=== PATIENT | female | born 1935 | race Caucasian/White ===

== ENCOUNTER → 2018-12-18 | Outpatient (CLI) | payer MEDICARE ==
[2018-09-21 11:00] VITALS: BP 156/66
[~2018-12-18] MED LIST: AMLO1TAB12 PO; ASPI-482 PO; ASPI325T8 PO; ATOR40TA59 PO; CALC-98 PO; CHOL10003 PO; CHOL500016 PO; FURO-68 PO; GLIP10TA13 PO; GLIP5TAB10 PO; LATA2.5D3 OU; LEVO50TA5 PO; LINA5TAB PO; METO-269 PO; REGADENOSON 0.4 MG/5 ML DISP.SYRIN. IV ONE; SACU1TAB PO; TIMOPTIC 0.25% OU; TRAV5DRO OP; VIT1CAPS12 PO; [UNRECOGNIZED DRUG - OTHER]
--- NOTE | 2018-12-18 12:03 | RAD ---
MR#: [id number] Date of Study: 12/18/2018 Ordering Physician: LULA MIRELES, Referring Physician: AMBER HURTADO Tech: ALBER Soto APPROVED REPORT Test Type: Pharmacological Stress Nurse/Tech: LEE MÁRQUEZ Test Indications: CAD, LOW EF Cardiac History: See Electronic Medical Record BRADYCARDIA, TRIGIMINEY Medications: See Electronic Medical Record Medical History: See Electronic Medical Record Resting ECG: SR W/PVC'S Resting Heart Rate: 65 bpm Resting Blood Pressure: 162/63mmHg Pretest Chest Pain: No chest pain Nurse/Tech Notes S1,S2, LUNGS CTA, DENIES CHEST PAIN OR SOA. PT IS WEARING A LIFE VEST. Consent: The procedure was explained to the patient in lay terms. Informed consent was witnessed. Josh eout was entered into [email or web address]. History and Stress Test performed by BULL Tang, ARRT (R) (N) Pharm. Details Pharmacologic stress testing was performed using 0.4mg per 5ml of regadenoson given intravenously ove r 7-10 seconds. Stress Symptoms PT DENIED CP OR SOA, C/O "A FUNNY FEELING", BUT RESOLVED. POST EXERCISE Reason for Termination: Infusion complete Max HR: 112 bpm Max Blood Pressure: 136/58mmHg Blood Pressure response to exercise: Normal blood pressure response during stress. Heart Rate response to exercise: NORMAL RESPONSE TO STRESS Chest Pain: No. Arrhythmia: . SR W/PVC'S,TRIGIMINEY NOTED ST Change: No. INTERPRETATION Stress EKG Conclusion: The resting EKG shows a sinus rhythm, nonspecific ST wave changes and lateral mild T wave inversion. The stress EKG shows no significant changes from baseline. No EKG evidence of stressed induced ischemia. Imaging Protocol IMAGE PROTOCOL: Rest Tc-99m/stress Tc-99m 1 day Rest: Stress: Viability: Radiopharm.Tc99m AdzahpkhvHs71f Sestamibi Jndz47tTn 33mCi Duration 15min. 13min. Img Date 12/18/2018 12/18/2018 Inj-Img Vfrr13nxk. 60min. Rest Admin Site:IV - Left WristAdministrator:BULL Tang, ARRT (R)(N) Stress Admin Site: IV - Left WristAdministrator: BULL Tang, ARRT (R)(N) STRESS DATA End Diast. Vol.132.0mlLVEDV index BSA77.0ml End Syst. Vol.77.0mlLVESV index BSA45.0ml Myocardial Yutq450.0gEject. Kcuuwupr17.0% Stress Scores Regional WT3.00Summed WT29.00 Regional WM0.00Summed WM30.00 LV Perfusion The stress scans show a small inferior wall defect. The rest scans show a slightly larger inferior wall defect. Nuclear imaging shows no reversible ischemia. Nuclear imaging shows a small fixed inferior defect most consistent with an previous infarct. Wall Motion Left ventricular systolic function is mildly decreased with inferior septal hypokinesis and ejection fraction of 42%. LV Perf. Quant 17 Seg. SSS2.00 17 Seg. SRS8.00 17 Seg. SDS0.00 Stress Defect Extent (% LAD)0.00Rest Defect Extent (% LAD)0.00Rev. Defect Extent (% LAD)0.00 Stress Defect Extent (% LCX) 0.00Rest Defect Extent (% LCX)10.00Rev. Defect Extent (% LCX)0.00 Stress Defect Extent (% RCA)11.10Rest Defect Extent (% RCA)32.20Rev. Defect Extent (% RCA)0.00 Stress Defect Extent (% LANDON)5.40Rest Defect Extent (% LANDON)13.00Rev. Defect Extent (% LANDON)0.00 IMPRESSION Comparison of Rest to Stress Regional Wall Thickening: No Change, Normal, Mildly Decreased Wall Thic kening, Moderately Decreased Wall Thickening, Severely Decreased Wall Thickening, Hyperdynamic Wall T hickening Conclusion 1. No EKG evidence of stressed induced ischemia. 2. Nuclear imaging shows no reversible ischemia. 3. Nuclear imaging shows an inferior infarct. 4. Left ventricular systolic function is mildly decreased with inferior septal hypokinesis and an eje ction fraction of 42%. 5. Moderately low risk Lexiscan nuclear stress test. Signed by : Reji Berumen MD Electronically Approved : 12/18/2018 12:03:23
--- NOTE | 2018-12-18 13:48 | CARD ---
MR#: [id number] Date of Study: 12/18/2018 Ordering Physician: LULA MIRELES, Referring Physician: Sommer HURTADO: Michelle Crenshaw LORRI APPROVED REPORT EXAM: Two-dimensional and M-mode echocardiogram with Doppler and color Doppler. Other Information Quality : AverageHR: 80bpm Rhythm : NSR INDICATION CAD 2D DIMENSIONS RVDd2.4 (2.9-3.5cm)Left Atrium(2D)3.8 (1.6-4.0cm) IVSd1.2 (0.7-1.1cm)Aortic Root(2D)2.2 (2.0-3.7cm) LVDd5.1 (3.9-5.9cm)LVOT Diameter2.1 (1.8-2.4cm) PWd1.0 (0.7-1.1cm)LVDs4.1 (2.5-4.0cm) FS (%) 19.9 %SV49.9 ml LVEF(%)25.0 (>50%) Aortic Valve AoV Peak Salas.105.6cm/sAoV VTI23.9cm AO Peak GR.4.5mmHgLVOT Peak Salas.73.7cm/s AO Mean GR.3mmHgAVA (VMAX)2.48cm2 PARVEEN (VTI)2.50cm2 Mitral Valve MV E Peak Gr.11mmHgMV E Mean Gr.3mmHg Pulmonary Valve PV Peak Rakxqalr49.9cm/s Pulmonary Vein S1 Azoudvci70.4cm/sD2 Bxsjbeqd63.0cm/s LEFT VENTRICLE The left ventricle is normal size. Proximal septal thickening is noted. The systolic function is gracie rely impaired. The Ejection Fraction is 20-25%. There is global hypokinesis of the left ventricle. Tr ansmitral Doppler flow pattern is Grade I-abnormal relaxation pattern. RIGHT VENTRICLE The right ventricle is normal size. There is normal right ventricular wall thickness. The right ventr icular systolic function is normal. ATRIA The left atrium is mildly dilated. The right atrium size is normal. The interatrial septum is intact with no evidence for an atrial septal defect or patent foramen ovale as noted on 2-D or Doppler imagi ng. AORTIC VALVE The aortic valve is mildly thickened. The aortic valve is trileaflet. Doppler and Color Flow revealed trace to mild aortic regurgitation. There is no significant aortic valvular stenosis. There is no ao rtic valvular vegetation. MITRAL VALVE Mitral annular calcification is mild. There is no evidence of mitral valve prolapse. There is no mitr al valve stenosis. Doppler and Color-flow revealed mild mitral regurgitation. TRICUSPID VALVE The tricuspid valve is normal in structure and function. Doppler and Color Flow revealed trace tricus pid regurgitation. There is no tricuspid valve prolapse or vegetation. There is no tricuspid valve st enosis. PULMONIC VALVE Doppler and Color Flow revealed mild pulmonic valvular regurgitation. There is no pulmonic valvular s tenosis. GREAT VESSELS The aortic root is normal in size. The ascending aorta is normal in size. The IVC is normal in size a nd collapses >50% with inspiration. PERICARDIAL EFFUSION There is no evidence of significant pericardial effusion. Critical Notification Critical Value: No <Conclusion> The systolic function is severely impaired. The Ejection Fraction is 20-25%. There is global hypokinesis of the left ventricle. Signed by : Dago Jordan, Electronically Approved : 12/18/2018 13:47:51
== END | disposition home or self-care (01) ==
LOC: NM 08:37
PROVIDERS: ATTEND Internal Medicine Cardiovascular Disease
DX: I08.8 Other rheumatic multiple valve diseases (principal); I25.10 Atherosclerotic heart disease of native coronary artery without angina pectoris
CPT/HCPCS: 78452; 93017; 93306; A9500; J2785

== ENCOUNTER 2019-03-01 10:18 | Observation (INO) | payer MEDICARE ==
[~2019-03-01] VITALS: Ht 162.6 cm; Wt 58.5 kg
[2019-03-01] VITALS (11 sets, daily range): BP systolic 113–151; BP diastolic 43–67
[~2019-03-01 10:18] MED LIST changes: +HYDROmorphone 2 MG/ML VIAL IV PRN; +IV RINGERS,LACTATED 1000ML 1,000 ML IV SCH; +LIDOCAINE 1% PF 2 ML VIAL. ID PRN; +MORPHINE SULFATE 2 MG/ML VIAL. IV PRN; +ONDANSETRON PF 4 MG/2 ML VIAL. IV PRN; +PROCHLORPERAZINE 10 MG/2 ML VIAL. IV PRN; -REGADENOSON 0.4 MG/5 ML DISP.SYRIN. IV ONE; +fentaNYL PF VIAL 100 MCG/2 ML VIAL IV PRN
[2019-03-01] MEDS ORDERED: BACITRACIN 50,000 UNIT in IV NORMAL SALINE 250ML 250 ML IRR ONE (10:45)
[2019-03-01] MEDS ORDERED: MULT-505 PO (10:56)
[2019-03-01] MEDS ORDERED: BYSTOLIC5 MG PO (10:56)
--- NOTE | 2019-03-01 11:08 | EKG ---
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
[2019-03-01 11:38] LABS: HEMATOCRIT 34.5 % (36.0-47.0); HEMOGLOBIN 11.2 g/dL (12.0-15.5); RED BLOOD COUNT 3.88 x10^6/uL (3.50-5.40); RED CELL DISTRIBUTION WIDTH 15.9 % (11.5-14.5); WHITE BLOOD COUNT 13.7 x10^3/uL (4.0-11.0)
[2019-03-01] MEDS ORDERED: PROPOFOL 50 ML IV ONE (11:46)
[2019-03-01 11:48] LABS: CALCIUM 9.4 mg/dL (8.5-10.1); CREATININE 0.9 mg/dL (0.6-1.0); GFR 59.9; PROTHROMBIN TIME PATIENT 13.5 SEC (11.7-14.0)
[2019-03-01] MEDS ORDERED: LIDOCAINE 2%/EPI 1:100,000 20 ML VIAL. ONE (12:07)
[2019-03-01] MEDS ORDERED: LIDOCAINE 2%/EPI 1:100,000 20 ML VIAL. IJ ONE (12:15)
--- NOTE | 2019-03-01 13:56 | CARD ---
MR#: [id number] Date of Study: 03/01/2019 Ordering Physician: LULA JIMÉNEZ, Referring Physician: LULA JIMÉNEZ, Tech: APPROVED REPORT EXAM Implantation of Biotronik dual chamber automated implantable cardioverter-defibrillator with defibril lation thresholds measurement at the time of implantation MODERATE SEDATION ADMINISTERED BY ANESTHESIA FLUORO TIME: 3.6 MN DOSE:3.5 GYCM2 INDICATIONS Primary prevention of sudden cardiac in a patient with chronic systolic heart failure, severe i schemic cardiomyopathy PROCEDURE After explaining the risks, benefits, and alternative options, informed consent was obtained from the patient. The patient was brought to the cardiac catheterization lab and the left chest and shoulder were prepp ed and draped in the usual fashion. 30 mL of 2% lidocaine was infiltrated into the skin and subcutaneous tissues for local anesthesia. An incision was made over the left infraclavicular fossa and using blunt dissection and cautery, a pock et was created. Venous access was obtained in the left subclavian vein and 10.5 and 7 Kinyarwanda sheaths inserted. A Biotronik bipolar active fixation right ventricular lead model Plexa ProMRI, serial #[id number] was a dvanced under fluoroscopy guidance and the tip was positioned in the right ventricular apex. Followin g this, a Biotronik bipolar active fixation right atrial lead model Solia, serial #[id number] was posit ioned in the right atrial appendage under fluoroscopy guidance. The leads were then secured into plac e and attached to a Biotronik dual-chamber AICD generator model Ilivia 7 DR-T, serial #[id number]. This was placed in the pocket that was subsequently closed in 3 layers. Hemostasis was secured. Ventricular fibrillation was then induced to check the defibrillation threshold. Patient successfully converted to sinus rhythm with a 15 J shock therapy. At the end of procedure, the right ventricular lead showed a sensing amplitude of 16 mV, impedance of 640 ohms and a threshold of 0.4 V. The right a trial lead showed a sensing amplitude of 4 mV, impedance of 479 ohms and a threshold of 0.7 V. Patien t tolerated the procedure well. There were no immediate complications. CONCLUSION Successful implantation of Biotronik dual-chamber automated implantable cardioverter defibrillator fo r primary prevention of sudden cardiac in a patient with severe ischemic cardiomyopathy. Defibr illation thresholds were measured at the time of implantation. Signed by : Lula Jiménez, Electronically Approved : 03/01/2019 13:56:06
[2019-03-01] MEDS ORDERED: NO ANTICOAGULANT THERAPY. MC PRN (14:00)
[2019-03-01] MEDS ORDERED: ACETAMINOPHEN 325 MG TABLET. PO PRN (14:00)
--- NOTE | 2019-03-01 15:50 | RAD ---
Single view of the chest. 03/01/2019 1:50 PM Indication: Post pacemaker placement Comparison: Chest radiograph January 15, 2019 Findings: There is a dual-lead pacemaking/ICD device from a left subclavian approach. No pneumothorax is seen. Diffuse sagittal coarsening is noted. The heart is enlarged. Aorta is calcified. A hiatal hernia is seen. Coronary stents noted. No acute osseous changes are seen. IMPRESSION: 1. Left subclavian pacemaking/ICD device. No pneumothorax 2. Other chronic changes as described Electronically signed by: Ran Peterson MD (03/01/2019 3:48 PM) [facility]
[2019-03-01] MEDS ORDERED: ceFAZolin SODIUM IV Push 1 GM VIAL. IVP ONE (18:00)
[2019-03-01] MEDS ORDERED: ceFAZolin SODIUM 1 GM in IV DEXTROSE 5% 50 ML IV ONE (18:00)
[2019-03-02 03:11] VITALS: BP 140/66
[2019-03-02] MEDS ORDERED: ceFAZolin SODIUM 1 GM in IV DEXTROSE 5% 50 ML IV ONE (06:00)
[2019-03-02 07:19] VITALS: BP 139/69
--- NOTE | 2019-03-02 07:41 | RAD ---
EXAM: CHEST 2 VIEWS. HISTORY: Pacemaker placement. COMPARISON: 03/01/2019. FINDINGS: Frontal and lateral views of the chest are obtained. A left-sided pacer/defibrillator has its leads in the right atrium and right ventricle. There are no confluent infiltrates. There is mild atelectasis in the bases. Small pleural effusions are suspected. There is no pneumothorax. The heart is not enlarged. The aorta is calcified and tortuous. IMPRESSION: 1. Left 2-lead pacemaker/defibrillator in expected position. No pneumothorax. 2. Small pleural effusions. Electronically signed by: Hema Stover MD (03/02/2019 7:38 AM) [facility]
[2019-03-02 10:18] VITALS: BP 126/57
--- NOTE | 2019-03-02 12:21 | PDOC3 ---
Discharge Summary Visit Information Date of Admission: Mar 01, 2019 Date of Discharge: Mar 02, 2019 Admitting Diagnosis: ischemic cardio myopathy Final Diagnosis Ischemic cardiomyopathy Chronic systolic heart failure Coronary artery disease Hypertension Brief Hospital Course Allergies Allergies Coded Allergies Type Severity Reaction Last Updated Verified No Known Drug Allergies 05/30/13 No Vital Signs Vital Signs Date Time Temp Pulse Resp B/P (MAP) Pulse Ox O2 Delivery O2 Flow Rate FiO2 03/02/19 10:18 97.7 77 16 126/57 (80) 96 Room Air 97.7 03/01/19 14:10 1 Lab Results Laboratory Tests Test 03/01/19 11:25 03/01/19 14:21 03/01/19 17:36 03/01/19 20:29 White Blood Count 13.7 x10^3/uL (4.0-11.0) Red Blood Count 3.88 x10^6/uL (3.50-5.40) Hemoglobin 11.2 g/dL (12.0-15.5) Hematocrit 34.5 % (36.0-47.0) Mean Corpuscular Volume 89 fL (79-100) Mean Corpuscular Hemoglobin 29 pg (25-35) Mean Corpuscular Hemoglobin Concent 33 g/dL (31-37) Red Cell Distribution Width 15.9 % (11.5-14.5) Platelet Count 579 x10^3/uL (140-400) Prothrombin Time 13.5 SEC (11.7-14.0) Prothromb Time International Ratio 1.1 (0.8-1.1) Sodium Level 141 mmol/L (136-145) Potassium Level 4.0 mmol/L (3.5-5.1) Chloride Level 103 mmol/L (98-107) Carbon Dioxide Level 30 mmol/L (21-32) Anion Gap 8 (6-14) Blood Urea Nitrogen 19 mg/dL (7-20) Creatinine 0.9 mg/dL (0.6-1.0) Estimated GFR (Cockcroft-Gault) 59.9 Glucose Level 111 mg/dL (70-99) Calcium Level 9.4 mg/dL (8.5-10.1) Glucose (Fingerstick) 103 mg/dL (70-99) 158 mg/dL (70-99) 118 mg/dL (70-99) Test 03/02/19 07:23 03/02/19 11:37 Glucose (Fingerstick) 130 mg/dL (70-99) 104 mg/dL (70-99) Laboratory Tests Test 03/01/19 14:21 03/01/19 17:36 03/01/19 20:29 03/02/19 07:23 Glucose (Fingerstick) 103 mg/dL (70-99) 158 mg/dL (70-99) 118 mg/dL (70-99) 130 mg/dL (70-99) Test 03/02/19 11:37 Glucose (Fingerstick) 104 mg/dL (70-99) Brief Hospital Course Ms. Stanton is a 83 old pleasant female with history of coronary artery disease and ischemic cardiomyopathy/chronic systolic heart failure with LVEF 20-25% underwent successful Biotronik AICD implantation for primary prevention of sudden cardiac . Defibrillation thresholds were also measured at the time of implantation. Chest x-ray did not show any pneumothorax, device interrogation prior to discharge showed normal function and incision looked good at the time of discharge. She will follow-up with our office for wound check in 2 weeks. Discharge Information Condition at Discharge: Stable Follow Up: Weeks (2) Disposition/Orders: D/C to Home Scheduled Atorvastatin Calcium (Atorvastatin Calcium) 40 Mg Tablet, 40 MG PO DAILY for FOR CHOLESTEROL, Ref 0 (Reported) Entered as Reported by: EZRA JACOBSEN RPH on 09/17/181746 Last Action: Reviewed on 03/01/191055 by SONIDO HORTON Calcium Carbonate/Vitamin D3 (Calcium + Vitamin D Tablet) 1 Each Tablet, 1 TAB PO DAILY, (Reported) Entered as Reported by: EZRA JACOBSEN RPH on 09/17/181746 Last Action: Reviewed on 03/01/191055 by SONIDO HORTON Cholecalciferol (Vitamin D3) (Vitamin D3) 5,000 Unit Tablet, 5,000 UNIT PO DAILY, (Reported) Entered as Reported by: EZRA JACOBSEN RPH on 09/17/181746 Last Action: Reviewed on 03/01/191055 by SONIDO HORTON Glipizide (Glipizide) 5 Mg Tablet, 5 MG PO DAILY, (Reported) Entered as Reported by: EZRA JACOBSEN RPH on 7/22/19 1747 Last Action: Reviewed on 03/01/191055 by SONIDO HORTON Latanoprost (Latanoprost) 2.5 Ml Drops, 1 DROP OU HS, (Reported) Entered as Reported by: EZRA JACOBSEN RPH on 09/17/181746 Last Action: Reviewed on 03/01/191055 by SONIDO HORTON Levothyroxine Sodium (Levothyroxine Sodium) 50 Mcg Tablet, 50 MCG PO DAILYAC for THYROID SUPPLEMENT, Ref 0 (Reported) Entered as Reported by: EZRA JACOBSEN RPH on 09/17/181746 Last Taken: Unknown Dose on 03/01/19 Last Action: Last Taken Edited on 03/01/191055 by SONIDO HORTON Linagliptin (Tradjenta) 5 Mg Tablet, 1 TAB PO DAILY, #90 Ref 1 (Reported) Entered as Reported by: XAVIER AVILA on 05/01/15 0823 Last Action: Reviewed on 03/01/191055 by SONIDO HORTON Multivitamin (Once Daily) 1 Each Tablet, 1 TAB PO DAILY for for 30 Days, #30 Ref 0 (Reported) Entered as Reported by: SONIDO HORTON on 03/01/191055 Last Action: New Order on 03/01/191055 by SONIDO HORTON Nebivolol Hcl (Bystolic) 5 Mg Tablet, 5 MG PO DAILY for , (Reported) Entered as Reported by: SONIDO HORTON on 03/01/191055 Last Taken: Unknown Dose on 03/01/19 Last Action: New Order on 03/01/191055 by SONIDO HORTON Sacubitril/Valsartan (Entresto 24 mg-26 mg Tablet) 1 Each Tablet, 1 EACH PO DAILY for , (Reported) Entered as Reported by: Tanvir Arias on 09/21/18 1242 Last Taken: Unknown Dose on 03/01/19 Last Action: Edited on 03/01/19 1601 by THUY BAUER Vit A/Vit C/Vit E/Zinc/Copper (Preservision Areds Softgel) 1 Each Capsule, 1 CAP PO BIDWMEALS, (Reported) Entered as Reported by: EZRA JACOBSEN RPH on 09/17/181746 Last Action: Reviewed on 03/01/191055 by SONIDO HORTON Scheduled PRN Furosemide (Lasix) 40 Mg Tablet, 40 MG PO DAILY PRN for PER PROTOCOL, (Reported) Entered as Reported by: Tanvir Arias on 09/21/18 1243 Last Action: Reviewed on 03/01/19 105 by LULA NEW MD Mar 02, 2019 12:21
--- NOTE | 2019-03-02 14:52 | NUR ---
Discharge Note: MAGALY ENGLISH [facility] Discharge instructions and discharge home medications reviewed with Patient and a copy given. All questions have been answered and understanding verbalized.
== END 2019-03-02 14:53 | disposition home or self-care (01) ==
LOC: SURG 10:18 → 2 SOUTH 11:50
PROVIDERS: ADMIT Internal Medicine Cardiovascular Disease; ATTEND Internal Medicine Cardiovascular Disease
DX: I25.10 Atherosclerotic heart disease of native coronary artery without angina pectoris (principal); I42.9 Cardiomyopathy, unspecified; I11.0 Hypertensive heart disease with heart failure; I50.22 Chronic systolic (congestive) heart failure; K21.9 Gastro-esophageal reflux disease without esophagitis; E11.9 Type 2 diabetes mellitus without complications; Z95.1 Presence of aortocoronary bypass graft; Z96.642 Presence of left artificial hip joint
CPT/HCPCS: 33249; 36415; 71045; 71046; 80048; 82962; 85027; 85610; 93005; 93641; 96365; 96376; C1721; C1895; C1898; G0378; G0379; J0690; J2704; J3490; J7050; J7030

== ENCOUNTER 2019-09-13 17:40 | Observation (INO) | payer MEDICARE ==
[~2019-09-13] VITALS: Ht 162.6 cm; Wt 62.0 kg
[~2019-09-13 17:40] MED LIST changes: +BYSTOLIC5 MG PO; -HYDROmorphone 2 MG/ML VIAL IV PRN; -IV RINGERS,LACTATED 1000ML 1,000 ML IV SCH; -LIDOCAINE 1% PF 2 ML VIAL. ID PRN; -MORPHINE SULFATE 2 MG/ML VIAL. IV PRN; +MULT-505 PO; -ONDANSETRON PF 4 MG/2 ML VIAL. IV PRN; -PROCHLORPERAZINE 10 MG/2 ML VIAL. IV PRN; -fentaNYL PF VIAL 100 MCG/2 ML VIAL IV PRN
--- NOTE | 2019-09-13 18:15 | PHYS DOC ---
Past Medical History Past Medical History: Diabetes-Type II, Heart Disease, Hypertension, Other Additional Past Medical Histor: WEARING A LIFEVEST SINCE RIGHT HIP SURGERY IN AUGUST Past Surgical History: Cholecystectomy, Other Additional Past Surgical Histo: cardiac stents, RIGHT HIP REPLACEMENT Smoking Status: Never Smoker Alcohol Use: Rarely Drug Use: None General Adult EDM: Chief Complaint: CHEST PAIN-CARDIAC NATURE HPI: HPI: 83-year-old female whose defibrillator went off a couple times this afternoon presents for evaluation. Patient sent in by Dr. Beth who had evaluated the rhythm remotely and found that she was having sinus tach with PVCs which caused the defibrillator go off. Patient denies any chest pain, fever, chills, cough, shortness of breath or pain. Patient did say that she did have a minor fall after the defibrillator went off but did not hit her head did not get injured. Review of Systems: Review of Systems: Constitutional: Denies fever or chills Eyes: Denies change in visual acuity HENT: Denies sore throat Respiratory: Denies cough or shortness of breath Cardiovascular: Denies chest pain or edema GI: Denies abdominal pain, nausea, vomiting, or diarrhea : Denies dysuria Musculoskeletal: Denies back pain or joint pain Integument: Denies rash Neurologic: Denies headache or focal weakness Psychiatric: Denies depression or anxiety Heart Score: Risk Factors: Risk Factors: DM, Current or recent (<one month) smoker, HTN, HLP, family history of CAD, obesity. Risk Scores: Score 0 - 3: 2.5% MACE over next 6 weeks - Discharge Home Score 4 - 6: 20.3% MACE over next 6 weeks - Admit for Clinical Observation Score 7 - 10: 72.7% MACE over next 6 weeks - Early Invasive Strategies Allergies: Allergies: Allergies Coded Allergies Type Severity Reaction Last Updated Verified No Known Drug Allergies 05/30/13 No Physical Exam: PE: Constitutional: Well developed, well nourished, no acute distress, non-toxic appearance. HENT: No trismus Eyes: Conjunctiva clear, EOMI Neck: Normal range of motion, no tenderness, supple, no stridor. [] Cardiovascular: Regular rate/rhythm, peripheral pulse intact, JOURNEYMAN MOLDER intact Lungs & Thorax: No respiratory distress Abdomen: No distension Skin: Diffuse: Intact, no rash Back: Full ROM Extremities: Normal inspection, no edema Neurologic: Alert and oriented X 3, normal motor function, , no focal deficits noted. Psychologic: Affect normal, judgement normal, mood normal. Current Patient Data: Labs: Laboratory Tests Test 09/13/19 19:26 09/13/19 20:30 09/13/19 20:40 White Blood Count 12.5 x10^3/uL Red Blood Count 4.09 x10^6/uL Hemoglobin 12.7 g/dL Hematocrit 37.6 % Mean Corpuscular Volume 92 fL Mean Corpuscular Hemoglobin 31 pg Mean Corpuscular Hemoglobin Concent 34 g/dL Red Cell Distribution Width 14.8 % Platelet Count 285 x10^3/uL Neutrophils (%) (Auto) 77 % Lymphocytes (%) (Auto) 16 % Monocytes (%) (Auto) 5 % Eosinophils (%) (Auto) 1 % Basophils (%) (Auto) 1 % Neutrophils # (Auto) 9.6 x10^3/uL Lymphocytes # (Auto) 2.0 x10^3/uL Monocytes # (Auto) 0.7 x10^3/uL Eosinophils # (Auto) 0.2 x10^3/uL Basophils # (Auto) 0.1 x10^3/uL Prothrombin Time 12.9 SEC Prothromb Time International Ratio 1.0 Sodium Level 138 mmol/L Potassium Level 3.4 mmol/L Chloride Level 100 mmol/L Carbon Dioxide Level 29 mmol/L Anion Gap 9 Blood Urea Nitrogen 30 mg/dL Creatinine 1.6 mg/dL Estimated GFR (Cockcroft-Gault) 30.9 BUN/Creatinine Ratio 19 Glucose Level 158 mg/dL Calcium Level 9.3 mg/dL Magnesium Level 2.2 mg/dL Total Bilirubin 0.4 mg/dL Aspartate Amino Transf (AST/SGOT) 26 U/L Alanine Aminotransferase (ALT/SGPT) 28 U/L Alkaline Phosphatase 71 U/L Troponin I Quantitative 0.774 ng/mL Total Protein 7.1 g/dL Albumin 3.7 g/dL Albumin/Globulin Ratio 1.1 HD-Zzc-H-Type Natriuretic Peptide 681 pg/mL EKG: EKG: [] EKG interpreted by me normal sinus rhythm with rate of 98, left axis deviation nonspecific ST changes normal intervals, PVCs Radiology/Procedures: Radiology/Procedures: [facility] [address] [place] [address] IMAGING REPORT Signed PATIENT: LISA ENGLISH ACCOUNT: [id number] : 1935 LOCATION: ER AGE: 83 SEX: F EXAM STATUS: PRE ER ORD. PHYSICIAN: ELVA MIKE MD REASON: cp PROCEDURE: PORTABLE CHEST 1V INDICATION: Reason: cp / Spl. Instructions: / History: COMPARISON: March 02, 2019 FINDINGS: Single view of chest obtained. AICD is identified. Enlarged cardiomediastinal Silhouette with calcific atherosclerosis. Degenerative changes bilateral shoulders. No definite focal airspace consolidation. IMPRESSION: * No focal airspace consolidation or edema. * Enlarged cardiac silhouette. Electronically signed by: Anthony Merlos MD (09/13/2019 6:52 PM) [id number] DICTATED and SIGNED BY: ANTHONY MERLOS MD DATE: 09/13/191851 Course & Med Decision Making: Course & Med Decision Making Discussed the case with Dr. Beth who says electrolytes are fine and the Biotronik rep make some adjustments to her defibrillator the patient will be stable to go home. [Patient presents with defibrillator off a couple times a day. Patient seen by the Biotronik rep and had her settings adjusted. Patient does have a slight bump in her troponin discussed with cardiology (DR Patel who will put her in observation repeat Dragon Disclaimer: Dragwalter Disclaimer: This electronic medical record was generated, in whole or in part, using a voice recognition dictation system. Departure Departure Impression: Primary Impression: Elevated troponin Additional Impression: AICD discharge Disposition: ADMITTED INPATIENT Condition: STABLE Referrals: KAITLIN ENGLISH (PCP) Justicifation of Admission Dx: Justifications for Admission: Justification of Admission Dx: Yes [place]: Acute NSTEMI ELVA MIKE MD Sep 13, 2019 18:15
--- NOTE | 2019-09-13 18:55 | RAD ---
INDICATION: Reason: cp / Spl. Instructions: / History: COMPARISON: March 02, 2019 FINDINGS: Single view of chest obtained. AICD is identified. Enlarged cardiomediastinal Silhouette with calcific atherosclerosis. Degenerative changes bilateral shoulders. No definite focal airspace consolidation. IMPRESSION: * No focal airspace consolidation or edema. * Enlarged cardiac silhouette. Electronically signed by: Anthony Benedict MD (09/13/2019 6:52 PM) [id number]
[2019-09-13 19:49] LABS: BASO # 0.1 x10^3/uL (0.0-0.2); BASO % 1 % (0-3); EOS # 0.2 x10^3/uL (0.0-0.7); EOS % 1 % (0-3); HEMATOCRIT 37.6 % (36.0-47.0); HEMOGLOBIN 12.7 g/dL (12.0-15.5); LYMPH % 16 % (24-48); MEAN CORPUSCULAR HEMOGLOBIN 31 pg (25-35); MEAN CORPUSCULAR HGB CONC 34 g/dL (31-37); MEAN CORPUSCULAR VOLUME 92 fL (79-100); MONO # 0.7 x10^3/uL (0.0-1.1); MONO % 5 % (0-9); NEUT # 9.6 x10^3/uL (1.8-7.7); NEUT % 77 % (31-73); PLATELET COUNT 285 x10^3/uL (140-400); RED BLOOD COUNT 4.09 x10^6/uL (3.50-5.40); RED CELL DISTRIBUTION WIDTH 14.8 % (11.5-14.5); WHITE BLOOD COUNT 12.5 x10^3/uL (4.0-11.0)
[2019-09-13 19:58] LABS: PROTHROMBIN TIME PATIENT 12.9 SEC (11.7-14.0)
[2019-09-13 21:04] LABS: CALCIUM 9.3 mg/dL (8.5-10.1); CREATININE 1.6 mg/dL (0.6-1.0); GFR 30.9; POTASSIUM 3.4 mmol/L (3.5-5.1)
[2019-09-13 21:10] LABS: ALBUMIN 3.7 g/dL (3.4-5.0); ALBUMIN/GLOBULIN RATIO 1.1 (1.0-1.7); MAGNESIUM 2.2 mg/dL (1.8-2.4); TOTAL BILIRUBIN 0.4 mg/dL (0.2-1.0); TOTAL PROTEIN 7.1 g/dL (6.4-8.2)
[2019-09-13] MEDS ORDERED: ASPIRIN 325 MG TABLET PO ONE (23:30)
[2019-09-13 23:45] VITALS: BP 175/75
[2019-09-14 03:13] VITALS: BP 147/56
[2019-09-14 07:00] VITALS: BP 149/56
[2019-09-14 11:14] VITALS: BP 114/67
--- NOTE | 2019-09-14 12:48 | PDOC1 ---
History and Physical Visit Information Date of Admission: Sep 13, 2019 at 23:23 Source: Chart review, Patient History of Present Illness History of Present Illness The patient is a pleasant 83-year-old female with a history of coronary disease and previous stenting as well as an AICD. Patient had several discharges of her AICD yesterday and was asked to go to the emergency room for evaluation. In the emergency room the patient's work-up included a EKG just showed no acute ischemic changes. Chest x-ray showed no acute changes but did show baseline cardiomegaly. The manufactures provider service representative for the AICD adjusted the patient's parameters. She did have a minimally elevated troponin at 0.6. She was then admitted to monitor her rhythm and lab. Cardiac Risk Factors Cardiac Risk Factors: Hypertension Past Medical History Cardiovascular: CAD, Other (Cardiomyopathy) Past Surgical History Past Surgical History: Total hip replacement, Other (Coronary stents, AICD) Current Medications Current Medications Current Medications Aspirin (Jus Aspirin) 325 mg 1X ONCE PO Last administered on 09/13/19at 23:22; Start 09/13/19 at 23:30; Stop 09/13/19 at 23:31; Status DC Allergies Allergies Allergies Coded Allergies Type Severity Reaction Last Updated Verified No Known Drug Allergies 05/30/13 No Social History Smoke: No ALCOHOL: rare Family History Family History: Heart Disease ROS General: YES: Fatigue Physical Exam General: Alert, No acute distress HEENT: Atraumatic Lungs: Clear to auscultation Heart: Regular rate CHEST: Clear to auscultation Abdomen: Normal bowel sounds Vitals VITALS Vital Signs Date Time Temp Pulse Resp B/P (MAP) Pulse Ox O2 Delivery O2 Flow Rate FiO2 09/14/19 11:14 99.0 101 16 114/67 (83) 97 Room Air 99.0 Labs Labs Laboratory Tests Test 09/13/19 19:26 09/13/19 20:30 09/13/19 20:40 09/14/19 01:45 White Blood Count 12.5 x10^3/uL (4.0-11.0) Red Blood Count 4.09 x10^6/uL (3.50-5.40) Hemoglobin 12.7 g/dL (12.0-15.5) Hematocrit 37.6 % (36.0-47.0) Mean Corpuscular Volume 92 fL (79-100) Mean Corpuscular Hemoglobin 31 pg (25-35) Mean Corpuscular Hemoglobin Concent 34 g/dL (31-37) Red Cell Distribution Width 14.8 % (11.5-14.5) Platelet Count 285 x10^3/uL (140-400) Neutrophils (%) (Auto) 77 % (31-73) Lymphocytes (%) (Auto) 16 % (24-48) Monocytes (%) (Auto) 5 % (0-9) Eosinophils (%) (Auto) 1 % (0-3) Basophils (%) (Auto) 1 % (0-3) Neutrophils # (Auto) 9.6 x10^3/uL (1.8-7.7) Lymphocytes # (Auto) 2.0 x10^3/uL (1.0-4.8) Monocytes # (Auto) 0.7 x10^3/uL (0.0-1.1) Eosinophils # (Auto) 0.2 x10^3/uL (0.0-0.7) Basophils # (Auto) 0.1 x10^3/uL (0.0-0.2) Prothrombin Time 12.9 SEC (11.7-14.0) Prothromb Time International Ratio 1.0 (0.8-1.1) Sodium Level 138 mmol/L (136-145) Potassium Level 3.4 mmol/L (3.5-5.1) Chloride Level 100 mmol/L (98-107) Carbon Dioxide Level 29 mmol/L (21-32) Anion Gap 9 (6-14) Blood Urea Nitrogen 30 mg/dL (7-20) Creatinine 1.6 mg/dL (0.6-1.0) Estimated GFR (Cockcroft-Gault) 30.9 BUN/Creatinine Ratio 19 (6-20) Glucose Level 158 mg/dL (70-99) Calcium Level 9.3 mg/dL (8.5-10.1) Magnesium Level 2.2 mg/dL (1.8-2.4) Total Bilirubin 0.4 mg/dL (0.2-1.0) Aspartate Amino Transf (AST/SGOT) 26 U/L (15-37) Alanine Aminotransferase (ALT/SGPT) 28 U/L (14-59) Alkaline Phosphatase 71 U/L (46-116) Troponin I Quantitative 0.774 ng/mL (0.000-0.055) 0.600 ng/mL (0.000-0.055) Total Protein 7.1 g/dL (6.4-8.2) Albumin 3.7 g/dL (3.4-5.0) Albumin/Globulin Ratio 1.1 (1.0-1.7) NV-Rha-F-Type Natriuretic Peptide 681 pg/mL (0-449) Test 09/14/19 05:00 09/14/19 07:12 09/14/19 12:09 Troponin I Quantitative 0.481 ng/mL (0.000-0.055) Glucose (Fingerstick) 116 mg/dL (70-99) 101 mg/dL (70-99) Laboratory Tests Test 09/13/19 19:26 09/13/19 20:30 09/13/19 20:40 09/14/19 01:45 White Blood Count 12.5 x10^3/uL (4.0-11.0) Red Blood Count 4.09 x10^6/uL (3.50-5.40) Hemoglobin 12.7 g/dL (12.0-15.5) Hematocrit 37.6 % (36.0-47.0) Mean Corpuscular Volume 92 fL (79-100) Mean Corpuscular Hemoglobin 31 pg (25-35) Mean Corpuscular Hemoglobin Concent 34 g/dL (31-37) Red Cell Distribution Width 14.8 % (11.5-14.5) Platelet Count 285 x10^3/uL (140-400) Neutrophils (%) (Auto) 77 % (31-73) Lymphocytes (%) (Auto) 16 % (24-48) Monocytes (%) (Auto) 5 % (0-9) Eosinophils (%) (Auto) 1 % (0-3) Basophils (%) (Auto) 1 % (0-3) Neutrophils # (Auto) 9.6 x10^3/uL (1.8-7.7) Lymphocytes # (Auto) 2.0 x10^3/uL (1.0-4.8) Monocytes # (Auto) 0.7 x10^3/uL (0.0-1.1) Eosinophils # (Auto) 0.2 x10^3/uL (0.0-0.7) Basophils # (Auto) 0.1 x10^3/uL (0.0-0.2) Prothrombin Time 12.9 SEC (11.7-14.0) Prothromb Time International Ratio 1.0 (0.8-1.1) Sodium Level 138 mmol/L (136-145) Potassium Level 3.4 mmol/L (3.5-5.1) Chloride Level 100 mmol/L (98-107) Carbon Dioxide Level 29 mmol/L (21-32) Anion Gap 9 (6-14) Blood Urea Nitrogen 30 mg/dL (7-20) Creatinine 1.6 mg/dL (0.6-1.0) Estimated GFR (Cockcroft-Gault) 30.9 BUN/Creatinine Ratio 19 (6-20) Glucose Level 158 mg/dL (70-99) Calcium Level 9.3 mg/dL (8.5-10.1) Magnesium Level 2.2 mg/dL (1.8-2.4) Total Bilirubin 0.4 mg/dL (0.2-1.0) Aspartate Amino Transf (AST/SGOT) 26 U/L (15-37) Alanine Aminotransferase (ALT/SGPT) 28 U/L (14-59) Alkaline Phosphatase 71 U/L (46-116) Troponin I Quantitative 0.774 ng/mL (0.000-0.055) 0.600 ng/mL (0.000-0.055) Total Protein 7.1 g/dL (6.4-8.2) Albumin 3.7 g/dL (3.4-5.0) Albumin/Globulin Ratio 1.1 (1.0-1.7) VI-Fuf-C-Type Natriuretic Peptide 681 pg/mL (0-449) Test 09/14/19 05:00 09/14/19 07:12 09/14/19 12:09 Troponin I Quantitative 0.481 ng/mL (0.000-0.055) Glucose (Fingerstick) 116 mg/dL (70-99) 101 mg/dL (70-99) Images Images Chest x-ray with no acute infiltrates ECG EKG: NSR VTE Prophylaxis Ordered VTE Prophylaxis Devices: Yes VTE Pharmacological Prophylaxi: Yes Assessment/Plan Assessment/Plan 1. AICD. Patient with several discharges yesterday. The device rep evaluated the AICD with adjustments made. Troponin minimally elevated 0.6 and fell to 0.4 8 in the morning. Patient has been stable overnight. We will continue to increase activities and anticipate releasing the patient to home later today with office follow-up. 2. Coronary artery disease previous stenting. No chest pain. No significant elevation in troponin which can be attributed to the patient's discharge of her AICD. We will continue present medical treatment and follow-up in the office. 3. Hypertension. Good control. Justicifation of Admission Dx: Justifications for Admission: Justification of Admission Dx: Yes MN: Acute NSTEMI VERONIKA HOUGH MD Sep 14, 2019 12:48
--- NOTE | 2019-09-14 13:23 | NUR ---
Pt discharged to home with son. Discharge teaching completed. Dr Patel will have office call pt on monday for follow up instructions. Both verbalized understanding.
== END 2019-09-14 13:25 | disposition home or self-care (01) ==
LOC: ER 17:40 → 6 SOUTH 23:23
PROVIDERS: ADMIT Internal Medicine Cardiovascular Disease; ATTEND Internal Medicine Cardiovascular Disease
DX: T82.198A Other mechanical complication of other cardiac electronic device, initial encounter (principal); I10 Essential (primary) hypertension; R74.8 Abnormal levels of other serum enzymes; I25.10 Atherosclerotic heart disease of native coronary artery without angina pectoris; I42.8 Other cardiomyopathies; E11.9 Type 2 diabetes mellitus without complications; Z95.1 Presence of aortocoronary bypass graft; Z79.82 Long term (current) use of aspirin; Z90.49 Acquired absence of other specified parts of digestive tract; Z96.641 Presence of right artificial hip joint; Z98.890 Other specified postprocedural states
CPT/HCPCS: 36415; 71045; 80053; 82962; 83735; 83880; 84484; 85025; 85610; 99285; G0378; G0379